=== PATIENT | male | born 1980 | race Caucasian/White ===

== ENCOUNTER 2019-02-27 12:45 | Emergency (ER) | payer MEDICAID ==
[2019-02-27 13:16] VITALS: BP 133/96
--- NOTE | 2019-02-27 13:49 | ED Physician Documentation ---
PD HPI PED ILLNESS - Stated complaint Stated Complaint: SORE THROAT/HEADACHE - Chief complaint Chief Complaint: Heent - History obtained from History obtained from: Patient - History of Present Illness Timing - onset: Other (Sore throat since yesterday with headache and chills. No body aches.) Review of Systems Constitutional: reports: Chills. denies: Fever, Fatigue Eyes: denies: Loss of vision, Decreased vision, Photophobia Nose: denies: Rhinorrhea / runny nose, Congestion Throat: reports: Sore throat GI: denies: Nausea, Vomiting, Diarrhea PD PAST MEDICAL HISTORY - Present Medications Home Medications: Ambulatory Orders Medication Instructions Recorded Confirmed Butalb/Acetaminophen/Caffeine 1 each PO Q4H PRN #10 capsule 02/27/19 [Fioricet 50-300-40 mg Capsule] Ibuprofen [Motrin] 800 mg PO Q8H PRN #30 tablet 02/27/19 - Allergies Allergies/Adverse Reactions: Allergies Allergy/AdvReac Type Severity Reaction Status Date / Time No Known Drug Allergies Allergy Verified 02/27/19 13:28 - Social History Does the pt smoke?: No Smoking Status: Never smoker PD ED PE NORMAL - Vitals Vital signs reviewed: Yes - General General: Alert and oriented X 3, No acute distress - HEENT HEENT: PERRL, EOMI, Other (Mildly red tonsils, no swelling or exudates, no cervical adenopathy. Supple neck.) - Neck Neck: Supple, no meningeal sign, No bony TTP - Derm Derm: No rash - Neuro Neuro: Alert and oriented X 3, No motor deficit, No sensory deficit, Normal speech Results - Vitals Vitals: Vital Signs - 24 hr 02/27/19 13:14 Temperature 37.1 C Heart Rate 85 Respiratory 18 Rate Blood Pressure 133/96 H O2 Saturation 98 Oxygen O2 Source Room air - Labs Labs: Laboratory Tests 02/27/19 13:18 Group A Strep Rapid Negative PD MEDICAL DECISION MAKING - ED course ED course: 38-year-old gentleman with viral pharyngitis, culture pending. Treated symptomatically. Nontoxic, no evidence of meningitis. Departure - Departure Disposition: 01 Home, Self Care Clinical Impression: Viral pharyngitis Condition: Good Record reviewed to determine appropriate education?: Yes Instructions: ED Pharyngitis Viral Report Pending Prescriptions: Butalb/Acetaminophen/Caffeine [Fioricet 50-300-40 mg Capsule] 1 each PO Q4H PRN #10 capsule PRN Reason: Headache Ibuprofen [Motrin] 800 mg PO Q8H PRN #30 tablet PRN Reason: PAIN &/OR FEVER Comments: Call your doctor to arrange a follow-up appointment, make the next available appointment. In the interim, return anytime if worse or if new symptoms develop. Your blood pressure was elevated today on check into the emergency department. This does not mean that you have hypertension, it is a common phenomenon to come to the emergency department and have elevated blood pressure. I recommend that you see your primary care physician within the week to have it rechecked when you are feeling better. Forms: Activity restrictions
== END 2019-02-27 14:13 | disposition home or self-care (01) ==
LOC: ED 12:45
DX: J02.8 Acute pharyngitis due to other specified organisms (principal); B97.89 Other viral agents as the cause of diseases classified elsewhere; R03.0 Elevated blood-pressure reading, without diagnosis of hypertension
CPT/HCPCS: 87070; 87430; 99283

== ENCOUNTER 2019-07-26 17:10 | Outpatient (CLI) | payer MEDICAID | END 2019-07-26 17:11 | disposition critical access hospital (66) | LOC: EMS 17:10 | PROVIDERS: ATTEND Surgery | DX: R07.89 Other chest pain (principal); R06.00 Dyspnea, unspecified | CPT/HCPCS: A0425; A0429; A0999 ==

== ENCOUNTER 2019-07-26 17:27 | Emergency (ER) | payer MEDICAID ==
[2019-07-26] MEDS ORDERED: LIDOCAINE VISCOUS 2% 15 ML UDC MM STA (17:32)
[2019-07-26] MEDS ORDERED: MAG HYDROX/AL HYDROX/SIMETH 30 ML UDC PO STA (17:32)
--- NOTE | 2019-07-26 17:34 | ED Physician Documentation ---
PD HPI CHEST PAIN - Stated complaint Stated Complaint: ANXIETY - History obtained from History obtained from: Patient, EMS - History of Present Illness Timing - onset: Today (39-year-old gentleman presents by ambulance. Unfortunately he is intoxicated so history is somewhat limited but he is developed some substernal or upper epigastric chest pain today that comes in waves. 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 He denies shortness of breath.) Review of Systems Unable to obtain: Intoxicated PD PAST MEDICAL HISTORY - Present Medications Home Medications: Ambulatory Orders Medication Instructions Recorded Confirmed Butalb/Acetaminophen/Caffeine 1 each PO Q4H PRN #10 capsule 02/27/19 [Fioricet 50-300-40 mg Capsule] Ibuprofen [Motrin] 800 mg PO Q8H PRN #30 tablet 02/27/19 - Allergies Allergies/Adverse Reactions: Allergies Allergy/AdvReac Type Severity Reaction Status Date / Time No Known Drug Allergies Allergy Verified 07/26/19 17:34 - Social History Does the pt smoke?: No Smoking Status: Never smoker PD ED PE NORMAL - Vitals Vital signs reviewed: Yes - General General: Other (Is alert and cooperative but tangential historian and slow slurred speech and smells of alcohol) - HEENT HEENT: PERRL, EOMI - Neck Neck: Supple, no meningeal sign, No bony TTP - Cardiac Cardiac: RRR, No murmur - Respiratory Respiratory: No respiratory distress, Clear bilaterally - Abdomen Abdomen: Soft, Non tender - Back Back: No CVA TTP, No spinal TTP - Derm Derm: Normal color, Warm and dry - Extremities Extremities: No edema, No calf tenderness / cord - Neuro Neuro: Other (Slow slurred speech, intoxicated, smells of alcohol, symmetric neurologic exam upper and lower extremities.) Results - Vitals Vitals: Vital Signs - 24 hr 07/26/19 07/26/19 17:29 18:36 Temperature 36.5 C Heart Rate 77 73 Respiratory 21 16 Rate Blood Pressure 122/95 H 116/74 O2 Saturation 100 95 Oxygen O2 Source Room air - EKG (time done) 1749 Rate: Rate (enter#) (80) Rhythm: NSR, LAE [place]: Normal Intervals: Normal CA Ischemia: Normal ST segments. No: ST elevation c/w ischemia, ST depression Computer interpretation: Agree with computer - Labs Labs: Laboratory Tests 07/26/19 07/26/19 07/26/19 18:00 18:00 18:00 WBC 8.3 RBC 4.68 L Hgb 15.4 Hct 46.1 MCV 98.5 H MCH 32.9 H MCHC 33.4 RDW 12.3 Plt Count 259 MPV 8.4 Neut # (Auto) 5.4 Lymph # (Auto) 2.3 [place] # (Auto) 0.4 Eos # (Auto) 0.1 Baso # (Auto) 0.1 Absolute Nucleated RBC 0.00 Nucleated RBC % 0.0 Sodium 137 Potassium 3.1 L Chloride 102 Carbon Dioxide 22 Anion Gap 13.0 BUN 7 Creatinine 0.6 Estimated GFR (MDRD) 150 Glucose 110 H Calcium 8.5 Total Bilirubin 0.7 AST 33 ALT 32 Alkaline Phosphatase 45 Troponin I High Sens 6.7 Total Protein 7.4 Albumin 4.2 Globulin 3.2 Albumin/Globulin Ratio 1.3 Lipase 25 Ethyl Alcohol 283.7 - Rads (name of study) Single view chest x-ray Radiology: EMP read contemporaneously (Normal) PD MEDICAL DECISION MAKING - ED course ED course: 39-year-old gentleman with chest pain but really actually is probably more epigastric pain, presume a little bit of alcoholic gastritis. Collins better after the GI cocktail and was observed for several hours without clinical change. There is no evidence of ischemia. Departure - Departure Disposition: 01 Home, Self Care Clinical Impression: Atypical chest pain Gastritis Qualifiers: Gastritis type: alcoholic Chronicity: acute Gastritis bleeding: without bleeding Qualified Code(s): K29.20 - Alcoholic gastritis without bleeding Alcohol intoxication Qualifiers: Complication of substance-induced condition: uncomplicated Qualified Code(s): F10.920 - Alcohol use, unspecified with intoxication, uncomplicated Condition: Good Record reviewed to determine appropriate education?: Yes Instructions: ED Chest Pain NonCardiac, ED Gastritis Comments: Refrain from alcohol, return for new or worsening symptoms. Follow-up with your physician, next available appointment. Take Prilosec per package instructions, available [id number].
--- NOTE | 2019-07-26 18:03 | XRAY Report ---
Reason: chest pain Procedure Date: 07/26/2019 Accession Number: [id number] / [id number] Procedure: XR - Chest 1 View X-Ray CPT Code: 73016 Final Report FULL RESULT: EXAM: CHEST RADIOGRAPHY EXAM DATE: 07/26/2019 05:52 PM. CLINICAL HISTORY: Chest pain. COMPARISON: None. TECHNIQUE: 1 view. FINDINGS: Lungs/Pleura: No focal opacities evident. No pleural effusion. No pneumothorax. Mediastinum: Within exam limitations, the cardiomediastinal contour is normal. Other: None. IMPRESSION: Normal single view chest. [facility]
[2019-07-26 18:06] LABS: BASOPHILS # (AUTO) 0.1 10^3/uL (0.0-0.1); BASOPHILS % (AUTO) 0.6 %; EOSINOPHILS # (AUTO) 0.1 10^3/uL (0.0-0.7); EOSINOPHILS % (AUTO) 0.7 %; HGB - HEMOGLOBIN 15.4 g/dL (14.0-18.0); LYMPHOCYTES # (AUTO) 2.3 10^3/uL (1.5-3.5); LYMPHOCYTES % (AUTO) 28.2 %; MEAN CORPUSCULAR HEMOGLOBIN 32.9 pg (27.0-31.0); MEAN CORPUSCULAR HGB CONC 33.4 g/dL (32.0-36.0); MEAN CORPUSCULAR VOLUME 98.5 fL (80.0-94.0); MEAN PLATELET VOLUME 8.4 fL (7.4-11.4); MONOCYTES # (AUTO) 0.4 10^3/uL (0.0-1.0); MONOCYTES % (AUTO) 5.2 %; NEUTROPHILS # (AUTO) 5.4 10^3/uL (1.5-6.6); NEUTROPHILS % (AUTO) 64.9 %; PLT - PLATELET COUNT 259 10^3/uL (130-450); RED BLOOD COUNT 4.68 10^6/uL (4.70-6.10); RED CELL DISTRIBUTION WIDTH 12.3 % (12.0-15.0); WHITE BLOOD COUNT 8.3 x10^3/uL (4.8-10.8)
[2019-07-26 18:20] LABS: ALBUMIN 4.2 g/dL (3.2-5.5); ALBUMIN/GLOBULIN RATIO 1.3 (1.0-2.2); BILIRUBIN,TOTAL 0.7 mg/dL (0.2-1.0); CALCIUM 8.5 mg/dL (8.5-10.3); CREATININE 0.6 mg/dL (0.6-1.2); TOTAL PROTEIN 7.4 g/dL (6.7-8.2)
[2019-07-26 20:57] VITALS: BP 114/72
== END 2019-07-26 21:17 | disposition home or self-care (01) ==
LOC: EDUNIT# → ED 17:27
DX: K29.20 Alcoholic gastritis without bleeding (principal); F10.129 Alcohol abuse with intoxication, unspecified
CPT/HCPCS: 36415; 71045; 80053; 80320; 83690; 84484; 85025; 93005; 99281; 99284; A9270